=== PATIENT | male | born 1930 | race Caucasian/White ===

== ENCOUNTER 2017-11-01 09:13 | Emergency (ER) | payer OTHER ==
[2017-11-01 09:21] VITALS: BP 131/82; PULSE 76; TEMP 97.4; BMI 20.5
--- NOTE | 2017-11-01 09:50 | PDOC ---
History of Present Illness - General Chief Complaint: Laceration Stated Complaint: LT FINGER LACERATION Time Seen by Provider: 11/01/17 09:31 History Source: Patient Exam Limitations: No Limitations - History of Present Illness Initial Comments: 11/01/17 09:44 CHIEF COMPLAINT: Skin avulsion to the pad of the right thumb HISTORY OF PRESENT ILLNESS: Patient is an 87-year-old male history of CHF, A. fib, pacemaker on Coumadin presents with avulsion laceration to the pad of the right thumb. Patient reports getting his finger caught in the wine bottle health analyst last evening at approximately 7 PM. Patient reports because of the Coumadin has been bleeding through the night had a pressure dressing but patient bled through this morning. Denies any pain. Good range of motion to finger. Past History - Past Medical History Allergies/Adverse Reactions: Allergies Allergy/AdvReac Type Severity Reaction Status Date / Time No Known Allergies Allergy Verified 11/01/17 09:19 Home Medications: Ambulatory Orders Nebivolol HCl [Bystolic] 5 mg PO DAILY 07/21/14 Warfarin Na [Coumadin] 5 mg PO DAILY 07/21/14 Zolpidem Tartrate [Ambien] 5 mg PO DAILY 07/21/14 Cardiac Disorders: Yes (PACEMAKER, A-FIB) COPD: No - Surgical History Abdominal Surgery: Yes (HEMMORHOIDECTOMY) Cardiac Surgery: Yes (PACEMAKER) - Suicide/Smoking/Psychosocial Hx Smoking History: Never smoked Have you smoked in the past 12 months: No Hx Alcohol Use: Yes (1 DRINK A WEEK) Substance Use Type: Alcohol Review of Systems - Review of Systems Constitutional: No: Symptoms Reported HEENTM: No: Symptoms Reported Respiratory: No: Symptoms reported Cardiac (ROS): No: Symptoms Reported Integumentary: Yes: Other (skin avulsion to pad of right first finger.) All Other Systems: Reviewed and Negative *Physical Exam - Vital Signs Last Vital Signs Temp Pulse Resp BP Pulse Ox 97.4 F L 76 19 131/82 100 11/01/17 09:19 11/01/17 09:19 11/01/17 09:19 11/01/17 09:19 11/01/17 09:19 - Physical Exam General Appearance: Yes: Appropriately Dressed. No: Apparent Distress Neck: negative: Tender, Tender lateral, Tender midline Respiratory/Chest: positive: Lungs Clear, Normal Breath Sounds Gastrointestinal/Abdominal: positive: Normal Bowel Sounds, Soft. negative: Tender Lymphatic: negative: Adenopathy Musculoskeletal: positive: Normal Inspection Extremity: positive: Normal Capillary Refill, Normal Range of Motion Integumentary: positive: Other (centimeter laceration to the pad of the right thumb.) Neurologic: positive: Fully Oriented, Alert, Normal Mood/Affect Procedures - Laceration/Wound Repair Left Finger 1st digit Wound Length: 2.6 to 5.0 cm Wound Explored: clean Wound's Depth, Shape: superficial (2 cm avulsion, surgi cell on) Irrigated w/ Saline: Yes Betadine Prep: Yes Medical Decision Making - Medical Decision Making 11/01/17 09:54 A/P: This with avulsion laceration to the pad of the right thumb, actively bleeding. Piece of avulsed skin was still attached at the wound edge. Area cleansed sterilely, normal saline. Flap able to be placed over the wound Dermabond applied with good result. Bleeding controlled. Dry dressing applied. I have educated patient on how to monitor for any increased redness swelling or signs of infection. Area will act as a scab and fall off on its own. Tylenol for pain. Follow up as needed. 11/01/17 10:14 *DC/Admit/Observation/Transfer Diagnosis at time of Disposition: Skin avulsion - Discharge Dispostion Disposition: HOME Condition at time of disposition: Stable Admit: No - Referrals Referrals: Dane Hendrix MD [Primary Care Provider] - - Patient Instructions Printed Discharge Instructions: DI for Laceration Repair With Dermabond Additional Instructions: Please keep area dry for at least 48 hours, area will act as a scab in fall off on its own. Do not rub or scratch area. If any increased redness swelling or signs of infection return to ER. If any uncontrolled bleeding return to ER. If area becomes wet the wound may start to rebleed. Apply pressure and return to ER. - Post Discharge Activity
== END 2017-11-01 10:22 | disposition home or self-care (01) ==
LOC: JERFT 09:13
PROC: 0HQFXZZ Repair Right Hand Skin, External Approach (ICD-10-PCS; principal; 2017-11-01)
DX: S61.011A Laceration without foreign body of right thumb without damage to nail, initial encounter (principal); W27.4XXA Contact with kitchen utensil, initial encounter; Y93.89 Activity, other specified; Y92.000 Kitchen of unspecified non-institutional (private) residence as the place of occurrence of the external cause; I48.91 Unspecified atrial fibrillation; Z95.0 Presence of cardiac pacemaker; I50.9 Heart failure, unspecified; Z79.01 Long term (current) use of anticoagulants
CPT/HCPCS: 12001; 99281-25

== ENCOUNTER 2017-11-16 11:43 | Emergency (ER) | payer OTHER ==
[2017-11-16 11:48] VITALS: BP 120/73; PULSE 96; TEMP 97; BMI 20.5
[2017-11-16] MEDS ORDERED: ACETAMINOPHEN 1000 MG/100 ML VIAL (NON FORMULARY) IVPB ONE (12:24)
[2017-11-16] MEDS ORDERED: SODIUM CHLORIDE 1,000 ML IV SCH (12:30)
[2017-11-16 12:46] LABS: BASO % 0.2 % (0-2.0); HEMATOCRIT 45.3 % (35.4-49); HEMOGLOBIN 14.9 GM/dL (11.7-16.9); LYMPH % 22.7 % (8-40); MCH 32.5 pg (25.7-33.7); MCHC 32.8 g/dl (32.0-35.9); MEAN PLT VOLUME 8.7 fl (7.5-11.1); MONO % 10.9 % (3.8-10.2); NEUT % 65.2 % (42.8-82.8); PLATELET COUNT 166 K/MM3 (134-434); RBC 4.57 M/mm3 (4.00-5.60); RDW 15.1 % (11.9-15.9); WHITE BLOOD COUNT 8.3 K/mm3 (4.0-10.0)
[2017-11-16] MEDS ORDERED: ACETAMINOPHEN INJECTION 100 ML IVPB ONE (12:47)
[2017-11-16 13:02] LABS: URINE APPEARANCE CLEAR; URINE BILIRUBIN NEGATIVE (<2.0 mg/dL); URINE BLOOD NEGATIVE (NEGATIVE); URINE COLOR YELLOW; URINE GLUCOSE (UA) NEGATIVE (NEGATIVE); URINE KETONE NEGATIVE (NEGATIVE); URINE LEUK ESTERASE NEGATIVE (NEGATIVE); URINE NITRITE NEGATIVE (NEGATIVE); URINE PROTEIN NEGATIVE (NEGATIVE)
[2017-11-16 13:34] LABS: ALBUMIN 4.2 g/dl (3.4-5.0); ANION GAP 11 (8-16); BLOOD UREA NITROGEN 56 mg/dL (7-18); CALCIUM 9.5 mg/dL (8.5-10.1); CHLORIDE 102 mmol/L (98-107); CO2 28 mmol/L (21-32); CREATININE 2.3 mg/dL (0.7-1.3); GLUCOSE,RANDOM 85 mg/dL (74-106); SGOT/AST 40 U/L (15-37); SGPT/ALT 42 U/L (12-78); SODIUM 141 mmol/L (136-145)
[2017-11-16 13:36] LABS: ALK PHOS 91 U/L (45-117); BILIRUBIN,TOTAL 0.9 mg/dL (0.2-1.0); TOT PROT 7.7 g/dl (6.4-8.2)
--- NOTE | 2017-11-16 13:58 | PDOC ---
History of Present Illness - General Chief Complaint: Injury Stated Complaint: INJURY, FALL Time Seen by Provider: 11/16/17 12:02 History Source: Patient Exam Limitations: No Limitations - History of Present Illness Initial Comments: 11/16/17 13:58 HPI: See 7-year-old male presents to the emergency room with complaints of a fall on Monday, 4 days ago. His is with him. He states that he awoke in the middle of night and landed on his left shoulder. He also states that his lower back is got some complaints of pain. He has not taken any medication as she does not like to take any kind of pills. He says his lower back is been causing him more pain and he is here for further evaluation. He is on Coumadin for atrial fibrillation. Chief Compliant: Status post fall complaints of lower back and left shoulder PMH: CRF, A. fib FH: Pt has not recently traveled outside the country in the last 30 days. Pt has not been in contact with people who have traveled out of the country, in contact with people who have been ill with fever, n, v, d. SH: smoking use: NONE illicit drug use: NONE alcohol use: NONE employment/educational status: sexual history: PSH: Home med use noted on OCT Allergies: NKA Immunizations: PCP: Dr. Hendrix Past History - Past Medical History Allergies/Adverse Reactions: Allergies Allergy/AdvReac Type Severity Reaction Status Date / Time No Known Allergies Allergy Verified 11/16/17 11:48 Home Medications: Ambulatory Orders Warfarin Na [Coumadin] 5 mg PO DAILY 07/21/14 Zolpidem Tartrate [Ambien] 5 mg PO DAILY 07/21/14 Metoprolol Succinate 0 mg PO DAILY 11/16/17 Cardiac Disorders: Yes (PACEMAKER, A-FIB) COPD: No - Surgical History Abdominal Surgery: Yes (HEMMORHOIDECTOMY) Cardiac Surgery: Yes (PACEMAKER) - Suicide/Smoking/Psychosocial Hx Smoking History: Never smoked Have you smoked in the past 12 months: No Hx Alcohol Use: Yes (1 DRINK A WEEK) Substance Use Type: Alcohol Review of Systems - Review of Systems Able to Perform ROS?: Yes Comments:: 11/16/17 15:25 General statement: Status post a fall complaints of left shoulder and lower back pain Hematology: neg history of bleeding/blood thinners Skin: Neg for lesions, rash, bruising. HEENT: Neg symptoms Respiratory: Neg SOB or difficulty in breathing Cardiac: Neg chest pain GI: Neg pain, n/v : Neg problems on voiding MS: Neg for joint pain/stiffness, no edema Neuro: Neg for LOC, weakness, Endocrine: Neg for excess thirst/hunger, cold/heat intolerance, excess sweating Allergies: Neg for allergies *Physical Exam - Vital Signs Last Vital Signs Temp Pulse Resp BP Pulse Ox 97 F L 96 H 18 120/73 99 11/16/17 11:44 11/16/17 11:44 11/16/17 11:44 11/16/17 11:44 11/16/17 11:44 - Physical Exam Comments: 11/16/17 15:25 General Appearance: This well appearing 87-year-old male V/S: hemodynamically stable, afebrile Skin: WNL of pt's skin color, no signs of pallor, mottling, cyanosis Head:symmetrical Eyes: EOM's intact, PERRLA Ears: denies pain Nose: patent Throat: lips, teeth, gums, tongue, buccal mucos pink and moist Lungs: Chest symmetry equal. Cap refill <3 seconds. Lung sounds clear Cardiac: PMI at R 4MCL space, pos S1 and S2, regular rate. Abdomen: Soft, round, nontender : Not observed Muscularskeletal: Gait steady, ambulated in to ER, no edema +PMS however he stating his lower back and left shoulder pain but there is full range of motion. Neuro: AAOx3, cognitively intact, speech clear and appropriate. ED Treatment Course - LABORATORY CBC & Chemistry Diagram: 11/16/17 12:40 11/16/17 12:40 - ADDITIONAL ORDERS Additional order review: Laboratory Results 11/16/17 12:47 Urine Color Yellow Urine Appearance Clear Urine pH 5.0 Ur Specific [place] 1.015 Urine Protein Negative Urine Glucose (UA) Negative Urine Ketones Negative Urine Blood Negative Urine Nitrite Negative Urine Bilirubin Negative Urine Urobilinogen 2.0 Ur Leukocyte Esterase Negative 11/16/17 12:40 RBC 4.57 MCV 99.0 H MCHC 32.8 RDW 15.1 MPV 8.7 Neutrophils % 65.2 Lymphocytes % 22.7 Monocytes % 10.9 H Eosinophils % 1.0 D Basophils % 0.2 - RADIOLOGY Radiology Studies Ordered: Category Date Time Status SHOULDER-LEFT [RAD] Stat Radiology 11/16/17 12:24 Taken SPINE-LUMBAR SACRAL [RAD] Stat Radiology 11/16/17 12:23 Taken - Medications Given in the ED: ED Medications Discontinued Medications Generic Name Dose Route Start Last Admin Trade Name Soraya PRN Reason Stop Dose Admin Acetaminophen 1,000 mg 11/16/17 12:24 11/16/17 12:56 Ofirmev Injection - IVPB 11/16/17 12:25 1,000 mg ONCE ONE Administration Medical Decision Making - Medical Decision Making 11/16/17 15:26 Patient initially seen and examined. Patient states he fell not hitting his head but having fallen on Coumadin. He had left shoulder pain initially however that seems to resolved and he does have some full range of motion with no bruising. 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 Again he is able to ambulate and walk around without any problems with no loss of bowel or bladder. He has not taken any pain medication. X-ray shows that his back is negative for fracture and there is some degenerative changes however nothing acute or fractures. Patient received IV Tylenol and IV fluids. They he states that the Tylenol seems to have taken care of his pain. I've explained upon discharge that he needs to follow-up with his eye very physician next week in regards to a discussion about Coumadin and frequent falls as well as taking Tylenol for pain. *DC/Admit/Observation/Transfer Diagnosis at time of Disposition: Fall - Discharge Dispostion Disposition: HOME Condition at time of disposition: Stable Admit: No - Referrals Referrals: Dane Hendrix MD [Primary Care Provider] - - Patient Instructions Printed Discharge Instructions: How to Prevent Falls Additional Instructions: Discharge instructions 1. Please follow up with your primary physician within the next few days and explain that you have been seen here in the Emergency Room for a fall. Explained to Dr. Hendrix that you have been falling more frequently and are concerned while on Coumadin. 2. If you experience any worsening of symptoms, change in mental status please return to the ER 3. Rest, ice pack, and Tylenol for pain 4. Drink plenty of water - Post Discharge Activity Forms/Work/School Notes: Back to Work
[2017-11-16 14:07] LABS: INR 2.25 (0.82-1.09); PROTHROMBIN TIME (PATIENT) 25.4 SEC (9.98-11.88)
== END 2017-11-16 15:15 | disposition home or self-care (01) ==
LOC: JER 11:43
PROC: 3E0337Z Introduction of Electrolytic and Water Balance Substance into Peripheral Vein, Percutaneous Approach (ICD-10-PCS; principal; 2017-11-16)
PROC: 3E033NZ Introduction of Analgesics, Hypnotics, Sedatives into Peripheral Vein, Percutaneous Approach (ICD-10-PCS; 2017-11-16)
DX: M54.5 Low back pain (principal); M25.512 Pain in left shoulder; W01.0XXA Fall on same level from slipping, tripping and stumbling without subsequent striking against object, initial encounter; Y93.89 Activity, other specified; Y92.032 Bedroom in apartment as the place of occurrence of the external cause; Y99.8 Other external cause status; I48.91 Unspecified atrial fibrillation; Z79.01 Long term (current) use of anticoagulants; Z95.0 Presence of cardiac pacemaker
CPT/HCPCS: 36415; 72100-TC-FY; 73030-TC-LT-FY; 80053; 81003; 85025; 85610; 99284-25; J0131; J7030